=== PATIENT | male | born 1960 | race Caucasian/White ===

== ENCOUNTER → 2024-07-31 11:15 | Outpatient (REF) | payer OTHER, SELFPAY | LOC: HWRAD 11:15 | PROVIDERS: ATTENDING PHYSICIAN Family Medicine; FAMILY PHYSICIAN Family Medicine | DX: R31.9 Hematuria, unspecified (principal) | CPT/HCPCS: 74176 ==

== ENCOUNTER 2025-03-17 06:16 | Day surgery (SDC) | payer OTHER, SELFPAY ==
[2025-03-10 12:04] LABS: Blood Urea Nitrogen 14 mg/dl (9-20); Calcium 9.5 mg/dl (8.4-10.2); Carbon Dioxide 33 mmol/L (22-30); Chloride 103 mmol/L (98-107); Glucose 106 mg/dl (70-99); Potassium 4.3 mmol/L (3.5-5.1); Sodium 140 mmol/L (135-145); eGFR > 60.00
[2025-03-10 12:08] LABS: Hematocrit 45.4 % (39.0-52.0); Hemoglobin 15.2 g/dL (13.0-18.0); Mean Corp Hgb Conc. 33.5 g/dL (33.0-37.0); Mean Corpuscular Hgb 29.1 pg (27.0-31.0); Mean Corpuscular Volume 86.8 fL (80.0-94.0); Mean Platelet Volume 10.5 fL (7.4-10.4); Platelet Count 231 10^3/uL (130-400); Red Blood Cell Count 5.23 10^6/uL (4.70-6.10); Red Cell Dist. Width 13.8 % (11.5-14.5); White Blood Cell Count 7.6 10^3/uL (4.8-10.8)
[2025-03-10 13:42] VITALS: BMI 38.0
[2025-03-17] VITALS (12 sets, daily range): BP systolic 101–136; BP diastolic 46–76; BMI 38.0
[2025-03-17] MEDS: NORMOSOL-R/PLASMALYTE-A 1000 IV (07:57)
--- NOTE | 2025-03-17 10:04 | W.IMMPOSTOP ---
Surgical Immed Post Op Note
-
Primary Surgeon: Edelmira
Pre-op Diagnosis: Bladder stones, BPH w/ obstructing intravesical median lobe
Post-op Diagnosis: Same
Procedure Performed: urethral dilation, TURP, cystolitholapaxy
Anesthesia Type: LMA
Specimen / Cultures: prostate chips/None
Estimated Blood Loss: Negligible
Drains: 22Fr 3-way catheter (25 cc in balloon)
Complications: None
Operative Findings:
~10 bladder stones (largest 10 mm) fragmented to stone debris and evacuated in entirety
Complete resection of median lobe w/ patent prostatic urethral channel and no evidence of LEMOS
No involvement of bilateral UOs, veru, external urethral sphincter on final cysto.
Sister (Zoya) updated post-op in waiting area.
[2025-03-17] MEDS: DETROL LA 4 MG PO (10:34)
[2025-03-17] MEDS: NORVASC 5 MG PO (21:26)
[2025-03-17] MEDS: BENICAR 40 MG PO (21:26)
[2025-03-18 03:00] VITALS: BP 113/60
[2025-03-18 07:34] LABS: Hematocrit 45.2 % (39.0-52.0); Mean Corp Hgb Conc. 33.2 g/dL (33.0-37.0); Mean Corpuscular Hgb 28.6 pg (27.0-31.0); Mean Corpuscular Volume 86.1 fL (80.0-94.0); Mean Platelet Volume 10.1 fL (7.4-10.4); Platelet Count 241 10^3/uL (130-400); Red Blood Cell Count 5.25 10^6/uL (4.70-6.10); Red Cell Dist. Width 13.5 % (11.5-14.5); White Blood Cell Count 16.3 10^3/uL (4.8-10.8)
[2025-03-18 07:57] VITALS: BP 111/61
[2025-03-18 08:02] LABS: Blood Urea Nitrogen 17 mg/dl (9-20); Calcium 9.2 mg/dl (8.4-10.2); Carbon Dioxide 29 mmol/L (22-30); Chloride 104 mmol/L (98-107); Estimated Creatinine Clearance > 125 ml/min; Glucose 126 mg/dl (70-99); Potassium 3.7 mmol/L (3.5-5.1); Sodium 139 mmol/L (135-145); eGFR > 60.00
--- NOTE | 2025-03-18 09:04 | CM ---
Cm met with patient in room. Patient confirmed demographics. Patient lives independently with family. Patient does not have a history of VN, SNF or DME. Patient is active with his PCP. Patient has medication coverage.
Plan: Home with no needs.
[2025-03-18] MEDS: DETROL LA 4 MG PO (10:17)
[2025-03-18] MEDS: Hygroton 25 MG PO (10:18)
--- NOTE | 2025-03-18 10:49 | W.DS.TRANS ---
DC Summary - [employer]
-
Discharge Instructions:
Sleep Apnea Risk High
Discharge Diagnosis/Procedures BPH s/p TURP
Diet Regular
Activity No strenuous activity
Additional Activity No strenuous activity, heavy lifting (>20 lbs),
or exercise x7 days after surgery
Driving Restrictions As prior to admission
Bathing Restrictions None
Blood Work not applicable
Wound Care not applicable
Instructions:
Stand-Alone Forms:
Changes to Home Medications: No
Discharge Medications:
DC Medications w/original date entered in [employer]
amlodipine 5 mg tablet 5 mg PO HS 03/11/25
chlorthalidone 25 mg tablet 25 mg PO DAILY 03/11/25
naproxen sodium 220 mg tablet (Aleve) 220 mg PO PRN PRN PAIN 03/11/25
olmesartan 40 mg tablet 40 mg PO HS 03/11/25
ciprofloxacin HCl 500 mg tablet 500 mg PO BID 5 days #10 tabs 03/18/25
phenazopyridine 200 mg tablet (Pyridium) 200 mg PO BID PRN dysuria 4 days #8 tabs 03/18/25
Home Medication Changes
Pending Results: Yes
Additional Pending Results:
surgical pathology
[2025-03-18 11:22] VITALS: BP 120/64
== END 2025-03-18 13:11 | disposition home or self-care (01) ==
LOC: SDS 06:16
PROVIDERS: ATTENDING PHYSICIAN Surgery; FAMILY PHYSICIAN Family Medicine
DX: N40.1 Benign prostatic hyperplasia with lower urinary tract symptoms (principal); N13.8 Other obstructive and reflux uropathy; N21.0 Calculus in bladder
CPT/HCPCS: 52601; 52317; 88305; 36415; 80048; 85027; 88344; 93005